=== PATIENT | female | born 1995 | race Two or more races ===

== ENCOUNTER 2022-05-22 16:55 | Observation (INO) | payer SELFPAY ==
[2022-05-22] MEDS ORDERED: PREN-96 PO (19:11)
== END 2022-05-22 19:16 | disposition home or self-care (01) ==
LOC: LDRP 16:55
PROVIDERS: ADMIT Obstetrics & Gynecology; ATTEND Obstetrics & Gynecology
DX: O26.892 Other specified pregnancy related conditions, second trimester (principal); R10.9 Unspecified abdominal pain; Z3A.27 27 weeks gestation of pregnancy
CPT/HCPCS: 59025; 81002; 94760; G0378